=== PATIENT | female | born 1940 | race Two or more races ===

== ENCOUNTER 2021-02-01 05:44 | Day surgery (SDC) | payer OTHER ==
[~2021-02-01 05:44] MED LIST: CRESTOR5 MG PO; TOPROL XL25 M1 PO
[2021-02-01] MEDS ORDERED: ULTRACET PO (11:36)
[2021-02-01] MEDS ORDERED: MACROBID 100 M100 MG PO (11:37)
== END 2021-02-01 15:10 | disposition home or self-care (01) ==
LOC: CIR.AMB 05:44
PROVIDERS: ATTEND Obstetrics & Gynecology Gynecology
DX: N81.11 Cystocele, midline (principal); Z20.822 Contact with and (suspected) exposure to COVID-19